=== PATIENT | female | born 1985 | race Caucasian/White ===

== ENCOUNTER 2021-04-04 12:31 | Emergency (ER) | payer MEDICAID, SELFPAY ==
[2021-04-04 12:32] VITALS: BP 120/75; PULSE 73; RESP 16; TEMP 36.6; O2SAT 99; BMI 41.6
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
== END 2021-04-04 14:50 | disposition home or self-care (01) ==
LOC: ED 14:22
PROVIDERS: Emergency Provider Emergency Medicine
DX: S46.911A Strain of unspecified muscle, fascia and tendon at shoulder and upper arm level, right arm, initial encounter (principal); X50.0XXA Overexertion from strenuous movement or load, initial encounter; Y93.89 Activity, other specified; Y92.89 Other specified places as the place of occurrence of the external cause; Y99.0 Civilian activity done for income or pay; F17.210 Nicotine dependence, cigarettes, uncomplicated; Z79.1 Long term (current) use of non-steroidal anti-inflammatories (NSAID)
CPT/HCPCS: 73060; 99282

== ENCOUNTER 2022-04-06 02:19 | Emergency (ER) | payer MEDICAID, SELFPAY ==
[2022-04-06 02:21] VITALS: BP 143/90; PULSE 80; RESP 20; TEMP 38.2; O2SAT 98; BMI 46.7
--- NOTE | 2022-04-06 02:53 | EX.ED.DYSGE1 ---
HPI History of Present Illness Chief Complaint: General Illness Informant: patient Onset/Context/Timing Onset: Yesterday Context: Gradual Onset Timing: Continuous Quality: Chills, achy, weak Location: All over Current Severity: Severe Maximum Severity: Severe Worsened by: Nothing Relieved by: Nothing has been treated Associated Symptoms Associated Symptoms: Minor cough. Nausea. Diarrhea. Associated Symptoms ED: cough Narrative Narrative: Patient with COVID symptoms. She has not tested herself no known contact with anyone with COVID. Tired of waiting at a different emergency department so she came here. She has a history of alpha-1 antitrypsin deficiency. She denies any dyspnea. Cough is nonproductive. [facility] Medical History (Updated 04/06/22 @ 03:[address] Greg Arriaga MD) [id number] deficiency Sprain of right upper arm Home Medications NK 04/06/22 [History Last Taken Unknown] Allergy/AdvReac Type Severity Reaction Status Date / Time No Known Allergies Allergy Verified 04/06/22 02:23 Social History Smoking Status: Former smoker ROS ROS ED Constitutional Constitutional ED: Reports body ache(s), chills, fatigue, fever(s), headache(s) and malaise Eyes Eyes: Denies change in vision or diplopia ENT ENT ED: Denies rhinorrhea or sore throat Cardiovascular Cardiovascular: Denies chest pain or palpitations Respiratory/Chest Respiratory/Chest: Reports cough; Denies dyspnea or dyspnea on exertion Gastrointestinal Gastrointestinal: Reports diarrhea and nausea; Denies abdominal pain or vomiting Genitourinary Genitourinary ED: Denies dysuria or hematuria Musculoskeletal Musculoskeletal: Denies back pain or neck pain Integumentary Denies abscess or rash Neurologic Neurologic: Reports headache(s); Denies paresthesias or weakness Psychiatric Psychiatric: Denies anxiety or suicidal thoughts EXAM Physical Exam Const Vital Signs: 04/06/22 02:21 04/06/22 02:26 Temperature 100.7 F H Temperature Source Oral Pulse Rate 80 Respiratory Rate 20 H Respiratory Effort Normal Respiratory Pattern Normal Blood Pressure 143/90 H Blood Pressure Mean 107 Pulse Ox 98 Oxygen Delivery Method Room Air Positive well nourished, well developed and obese Constitutional Narrative: Malaised-appearing, no distress General Appearance ED: well developed and NAD Nutritional Appearance: obese HEENT Reports moist mucous membranes normocephalic and atraumatic Eyes PERRL and EOMs intact bilaterally Neck full ROM and supple Resp normal respiratory effort and clear to auscultation bilaterally Effort and Inspection: able to speak in complete sentences Cardio regular rate, regular rhythm and no murmurs Rate: Negative for tachycardic GI non-tender and non-distended Auscultation: normoactive bowel sounds Palpation: soft Back/Spine no CVA tenderness General Back: other FROM Extremity normal to inspection and no calf tenderness General Extremety ED: Negative for edema, pulses abnormal or tenderness General Extremity: Negative for edema or pulses abnormal Neuro oriented x3, CN's II-XII intact bilaterally and no sensory deficits noted Sensorium / Orientation: awake and alert Motor Exam: strength 5/5 throughout Skin no rashes or lesions noted and no wounds MDM MDM MDM Narrative Medical decision making narrative: Rapid COVID is positive. Other than the fever patient's vital signs are unremarkable, she is not hypoxic, she appears well, given instructions for supportive care and remaining home. Discharge Plan Triage Chief Complaint: General Illness ED Provider: Greg Arriaga Dx/Rx/DC Orders Clinical Impression: COVID-19 Instructions: Coronavirus Disease 2019 (COVID-19): Caring for Yourself or Others Prescriptions: No Action NK Stand Alone Forms: ED Work / School Excuse Primary Care Provider: Andre Vega Referrals: Andre Vega DO [Primary Care Provider] - 10-14 Days if not better Activity Restrictions/Additional Instructions: Try to get a home portable pulse oximeter and closely watch your oxygen levels periodically. If you stay below 90% for more than a minute or so, and/or you are feeling like your breathing is getting worse, return to the emergency department for further evaluation. Currently, CDC recommendations state that you should stay home through day 5 of symptoms, then as long as symptoms are improving, if you need to go to work or somewhere else you may for days 6-10 as long as you are wearing a mask the entire time. If you are feeling better after day 10 you may resume life is normal. Disposition Disposition: Home, Self Care
[2022-04-06] MEDS: Ketorolac 60 MG/2 ML Vial IM (02:58)
[2022-04-06] MEDS: Ondansetron ODT 4 MG Tablet 8 MG PO (02:58)
[2022-04-06] MEDS: Acetaminophen 325 MG Tablet 650 MG PO (02:58)
[2022-04-06 03:26] VITALS: BP 139/79; PULSE 85; RESP 16; O2SAT 97
== END 2022-04-06 03:28 | disposition home or self-care (01) ==
PROVIDERS: Emergency Provider Emergency Medicine; PCP Family Medicine; Visit Provider Emergency Medicine
DX: U07.1 COVID-19 (principal); E88.01 Alpha-1-antitrypsin deficiency; Z87.891 Personal history of nicotine dependence
CPT/HCPCS: 87811; 96372; 99283